=== PATIENT | female | born 1975 | race Caucasian/White ===

== ENCOUNTER 2018-07-26 04:51 | Emergency (ER) | payer OTHER ==
[~2018-07-26] VITALS: Ht 160 cm; Wt 81.7 kg
[2018-07-26] MEDS ORDERED: CARVEDILOL12.5 MG (05:08)
[2018-07-26] MEDS ORDERED: LISINOPRIL5 MG (05:08)
[2018-07-26] MEDS ORDERED: LIPITOR40 MG (05:09)
[2018-07-26] MEDS ORDERED: HYDROCODONE-AP1 EAC6 PO (05:12)
[2018-07-26] MEDS ORDERED: FLEXERIL PO (05:12)
[2018-07-26 05:20] VITALS: BP 165/93
== END 2018-07-26 05:20 | disposition home or self-care (01) ==
LOC: M.ERS 04:51
DX: M54.5 Low back pain (principal); I10 Essential (primary) hypertension; I25.2 Old myocardial infarction

== ENCOUNTER 2021-02-25 22:21 | Emergency (ER) | payer OTHER ==
[~2021-02-25] VITALS: Ht 160 cm; Wt 93.0 kg
[~2021-02-25 22:21] MED LIST: CARVEDILOL12.5 MG; FLEXERIL PO; HYDROCODONE-AP1 EAC6 PO; LIPITOR40 MG; LISINOPRIL5 MG
[2021-02-25 23:17] LABS: URINE BILIRUBIN NEGATIVE (Negative); URINE BLOOD 3+ (Negative); URINE CLARITY CLEAR; URINE COLOR YELLOW; URINE GLUCOSE-RANDOM NEGATIVE (Negative); URINE KETONES NEGATIVE (Negative); URINE LEUKOCYTES-REFLEX NEGATIVE (Negative); URINE NITRITE-REFLEX NEGATIVE (Negative); URINE PROTEIN NEGATIVE (Negative); URINE SPECIFIC GRAVITY >= 1.030 (1.005-1.030); URINE UROBILINOGEN 0.2 E.U./dl (0.2-1.0)
[2021-02-25 23:36] LABS: CASTS None Seen /LPF (None Seen); SQUAMOUS 4-10 Moderate /LPF (0-3)
[2021-02-25 23:37] LABS: URINE WBC-REFLEX 0-5 Rare /HPF (0-5)
[2021-02-25 23:38] LABS: BACTERIA-REFLEX 1-9 Few /HPF (None Seen); CRYSTALS None Seen /LPF (None Seen); URINE RBC 3-10 Few /HPF (0-2)
[2021-02-26] MEDS ORDERED: DIFLUCAN150 MG PO (01:21)
[2021-02-26] MEDS ORDERED: DOXYCYCLINE 10100 MG PO (01:21)
[2021-02-26] MEDS ORDERED: NYSTATIN15 G1 TOP (01:21)
[2021-02-26 01:30] VITALS: BP 132/74
== END 2021-02-26 01:30 | disposition home or self-care (01) ==
LOC: M.ERS 22:21
PROVIDERS: Emergency Medicine
DX: B37.3 Candidiasis of vulva and vagina (principal); I25.2 Old myocardial infarction; I10 Essential (primary) hypertension; Z79.899 Other long term (current) drug therapy